=== PATIENT | male | born 1940 | race Caucasian/White ===

== ENCOUNTER 2023-10-28 16:33 | Emergency (ER) | payer MEDICARE ==
[~2023-10-28] VITALS: Ht 162.6 cm; Wt 69.1 kg
[2023-10-28] MEDS ORDERED: TETANUS-DIPHTHERIA TOXOIDS/PF 0.5 ML VIAL IM ONE (17:00)
[2023-10-28] MEDS ORDERED: ONDANSETRON ODT8 MG PO (18:52)
[2023-10-28 19:32] VITALS: BP 147/71
== END 2023-10-28 19:34 | disposition home or self-care (01) ==
LOC: ED 16:33
DX: S01.81XA Laceration without foreign body of other part of head, initial encounter (principal); S01.21XA Laceration without foreign body of nose, initial encounter; I10 Essential (primary) hypertension; I25.2 Old myocardial infarction; W18.30XA Fall on same level, unspecified, initial encounter; Z88.5 Allergy status to narcotic agent
CPT/HCPCS: 70450; 72125; 73140; 90714